=== PATIENT | female | born 1990 ===

== ENCOUNTER 2019-01-20 14:34 | Inpatient (IN) | payer OTHER ==
[~2019-01-20] VITALS: Ht 167.6 cm; Wt 74.8 kg
[2019-01-21] MEDS ORDERED: PRENATAL TABLE1 EAC1 PO (09:22)
[2019-01-21] MEDS ORDERED: FOLIC ACID1 MG PO (09:22)
== END 2019-01-22 09:38 | DRG 807 ==
LOC: EDSTATUS 01-21 07:24 → OB/GYN 01-21 07:24 → LDR 01-21 07:33 → CIR.AMB 01-21 14:32 → OB/GYN 01-21 18:41
PROVIDERS: ADMIT Obstetrics & Gynecology
PROC: 10E0XZZ Delivery of Products of Conception, External Approach (ICD-10-PCS; principal; 2019-01-21)
PROC: 3E0P7VZ Introduction of Hormone into Female Reproductive, Via Natural or Artificial Opening (ICD-10-PCS; 2019-01-21)
DX: O60.12X0 Preterm labor second trimester with preterm delivery second trimester, not applicable or unspecified (principal); Z37.1 Single stillbirth; Z3A.24 24 weeks gestation of pregnancy